=== PATIENT | female | born 1985 | race Two or more races ===

== ENCOUNTER 2020-01-07 15:10 | Emergency (ER) | payer OTHER ==
[2020-01-07 15:23] VITALS: BMI 28.6
--- NOTE | 2020-01-07 17:43 | PDOC ---
History of Present Illness - General Chief Complaint: Abscess Boil Stated Complaint: ABDOMINAL PAIN Time Seen by Provider: 01/07/20 15:19 History Source: Patient Exam Limitations: No Limitations - History of Present Illness Initial Comments: 01/07/20 17:38 34-year-old female presents to ED for evaluation of right breast abscess. Patient states was placed on doxycycline on Wednesday by Dr. Bellamy and has a upcoming ultrasound scheduled for January 10. Patient states was told she had a sebaceous cyst to the area but lately it has become more painful and red. Patient denies fever, chills nipple discharge, or active drainage. Is this a multiple visit Asthma Patient?: No Timing/Duration: 1 week Severity: mild, moderate Associated Symptoms: reports: denies symptoms Past History - Medical History Allergies/Adverse Reactions: Allergies Allergy/AdvReac Type Severity Reaction Status Date / Time shrimp Allergy Verified 01/07/20 15:18 Cardiac Disorders: Yes (hear murmur) COPD: No - Surgical History Gastric Stapling: Yes - Reproductive History Is Patient Now?: No - Psycho-Social/Smoking History Patient Lives Alone: No Lives with/in: spouse/SO Smoking History: Never smoked - Substance Abuse Hx (Audit-C & DAST Scrn) How often the patient has a drink containing alcohol: Never Score: In Men: 4 or > Positive; In Women: 3 or > Positive: 0 Screen Result (Pos requires Nsg. Audit-10AR): Negative Review of Systems - Review of Systems Able to Perform ROS?: No Is the patient limited [place] proficient: No Constitutional: No: Symptoms Reported HEENTM: No: Symptoms Reported Respiratory: No: Symptoms reported Cardiac (ROS): No: Symptoms Reported ABD/GI: No: Symptoms Reported : No: Symptoms Reported Musculoskeletal: No: Symptoms Reported Integumentary: Yes: Lumps Neurological: No: Symptoms reported Endocrine: No: Symptoms Reported Hematologic/Lymphatic: No: Symptoms Reported *Physical Exam - Vital Signs Last Vital Signs Temp Pulse Resp BP Pulse Ox 98 F 67 18 119/61 99 01/07/20 15:13 01/07/20 15:13 01/07/20 15:13 01/07/20 15:13 01/07/20 15:13 - Physical Exam General Appearance: Yes: Nourished, Appropriately Dressed. No: Apparent Distress HEENT: negative: Pale Conjunctivae Neck: positive: Supple Respiratory/Chest: positive: Lungs Clear, Normal Breath Sounds, Other (Noted 1 inch by half inch tender erythematous fluctuant mass to the right breast fold at the 5 o'clock position. Surrounding skin intact). negative: Respiratory Distress, Accessory Muscle Use Cardiovascular: positive: Regular Rhythm, Regular Rate. negative: Murmur Gastrointestinal/Abdominal: positive: Soft. negative: Tenderness Integumentary: positive: Warm, Moist Neurologic: positive: Motor Strength 5/5 (Ambulatory) ED Treatment Course - RADIOLOGY Radiology Studies Ordered: Category Date Time Status BREAST US RIGHT NO B [US] Stat Ultrasound 01/07/20 16:15 Taken - Medications Given in the ED: ED Medications Discontinued Medications Generic Name Dose Route Start Last Admin Trade Name Freq PRN Reason Stop Dose Admin Oxycodone/Acetaminophen 1 combo 01/07/20 16:16 01/07/20 16:31 Percocet 5/325 - PO 01/07/20 16:17 1 combo ONCE ONE Administration Medical Decision Making - Medical Decision Making 01/07/20 17:05 Chief complaint: Patient here with complaints of right breast erythema and tenderness currently on doxycycline day 2 pending an ultrasound patient with fluctuant tender mass to her right breast. Plan: Percocet and ultrasound ordered 01/07/20 18:08 Ultrasound shows a complex avascular collection in the soft tissue of the right breast at 4 o'clock position with some increased peripheral vascularity compati ble with an abscess. This measures 2.2 x 2.4 x 1.3 cm. Discharge - Discharge Information Problems reviewed: Yes Clinical Impression/Diagnosis: Abscess of breast, right Condition: Good Disposition: HOME - Follow up/Referral Referrals: Jose Alejandro Kay MD [Primary Care Provider] - Brandon Boyer MD [Staff Physician] - - Patient Discharge Instructions Patient Printed Discharge Instructions: DI for Skin Abscess Additional Instructions: Please follow-up with referred breast surgeon. Continue to take doxycycline and apply a warm compress to the affected area 4 times a day for 15 minutes of constant heat. Please do not wear a bra with underwire preferably no bra versus a cotton exercise bra - Post Discharge Activity
[2020-01-07 18:11] VITALS: BP 106/58; PULSE 63; TEMP 98.1
== END 2020-01-07 18:15 | disposition home or self-care (01) ==
LOC: JERFT 15:10 → JER 15:10 → JERFT 18:15
DX: N61.1 Abscess of the breast and nipple (principal)
CPT/HCPCS: 76641-TC-RT; 99284-25